=== PATIENT | male | born 1970 | race Caucasian/White ===

== ENCOUNTER 2019-04-28 08:47 | Inpatient (IN) | payer BC ==
[~2019-04-28] VITALS: Ht 172.7 cm; Wt 87.5 kg
--- OUTSIDE RECORDS SUMMARY | 2019-04-28 08:49 | XMS REPORT | Clinical Summary ---
Author Author [facility] Address Unknown Phone Unavailable Care Team Providers Care Conference Planner Name Role Phone Graeme Marcus MD PCP Allergies No Known Allergies Medications End Date Status Medication Sig Dispensed Refills Start Date Active diclofenac (VOLTAREN) 1 % Apply 2 g 0 Gel topically 3 (three) times daily as needed. Active hydroCHLOROthiazide TAKE 1/2 45 tablet 0 (HYDRODIURIL) 25 MG TABLET BY 9 tabletIndications: MOUTH EVERY Essential hypertension DAY Active amLODIPine (NORVASC) 5 MG TAKE 1 TABLET 90 tablet 0 tabletIndications: BY MOUTH 9 Essential hypertension EVERY DAY Active lisdexamfetamine Take 1 30 capsule 0 (VYVANSE) 50 MG capsule (50 9 capsuleIndications: mg total) by Attention deficit mouth daily. hyperactivity disorder Max Daily (ADHD), unspecified ADHD Amount: 50 mg type Active ramipril (ALTACE) 10 MG TAKE 1 180 capsule 0 capsuleIndications: CAPSULE BY 9 Essential hypertension MOUTH TWICE DAILY 05/20/2018 Discontinued amLODIPine (NORVASC) 5 MG Take 5 mg by 0 tablet mouth daily. 05/20/2018 Discontinued hydroCHLOROthiazide Take 12.5 mg 0 (HYDRODIURIL) 25 MG by mouth tablet daily. 05/20/2018 Discontinued ramipril (ALTACE) 10 MG Take 10 mg by 0 capsule mouth 2 (two) times daily. 05/20/2018 Discontinued lisdexamfetamine Take 40 mg by 0 (VYVANSE) 40 MG capsule mouth daily. 08/01/2018 Discontinued lisdexamfetamine Take 1 30 capsule 0 (VYVANSE) 40 MG capsule (40 8 capsuleIndications: mg total) by Attention deficit mouth daily. hyperactivity disorder Max Daily (ADHD), unspecified ADHD Amount: 40 mg type 01/14/2019 Discontinued ramipril (ALTACE) 10 MG Take 1 180 capsule 1 capsuleIndications: capsule (10 8 Essential hypertension mg total) by mouth 2 (two) times daily. 12/22/2018 Discontinued amLODIPine (NORVASC) 5 MG Take 1 tablet 90 tablet 1 tabletIndications: (5 mg total) 8 Essential hypertension by mouth daily. 09/21/2018 Discontinued hydroCHLOROthiazide Take 0.5 90 tablet 1 (HYDRODIURIL) 25 MG tablets (12.5 8 tabletIndications: mg total) by Essential hypertension mouth daily. 12/30/2018 Discontinued lisdexamfetamine Take 1 30 capsule 0 (VYVANSE) 40 MG capsule (40 8 capsuleIndications: mg total) by Attention deficit mouth daily. hyperactivity disorder Max Daily (ADHD), unspecified ADHD Amount: 40 mg type 12/22/2018 Discontinued hydroCHLOROthiazide TAKE 1/2 45 tablet 0 (HYDRODIURIL) 25 MG TABLET BY 9 tabletIndications: MOUTH EVERY Essential hypertension DAY 03/15/2019 Discontinued hydroCHLOROthiazide TAKE 1/2 45 tablet 0 (HYDRODIURIL) 25 MG TABLET BY 9 tabletIndications: MOUTH EVERY Essential hypertension DAY 03/22/2019 Discontinued amLODIPine (NORVASC) 5 MG TAKE 1 TABLET 90 tablet 0 tabletIndications: BY MOUTH 9 Essential hypertension EVERY DAY 02/06/2019 Discontinued lisdexamfetamine Take 1 30 capsule 0 (VYVANSE) 40 MG capsule (40 9 capsuleIndications: mg total) by Attention deficit mouth daily. hyperactivity disorder Max Daily (ADHD), unspecified ADHD Amount: 40 mg type 04/10/2019 Discontinued ramipril (ALTACE) 10 MG TAKE 1 180 capsule 0 capsuleIndications: CAPSULE BY 9 Essential hypertension MOUTH TWICE DAILY 03/06/2019 Discontinued lisdexamfetamine Take 1 30 capsule 0 (VYVANSE) 40 MG capsule (40 9 capsuleIndications: mg total) by Attention deficit mouth daily. hyperactivity disorder Max Daily (ADHD), unspecified ADHD Amount: 40 mg type 04/08/2019 Discontinued lisdexamfetamine Take 1 30 capsule 0 (VYVANSE) 50 MG capsule (50 9 capsuleIndications: mg total) by Attention deficit mouth daily. hyperactivity disorder Max Daily (ADHD), unspecified ADHD Amount: 50 mg type Active Problems Problem Noted Date Attention deficit hyperactivity disorder (ADHD), unspecified ADHD type 05/20/2018 Essential hypertension 05/20/2018 Encounters Care Team Description Date Type Specialty Graeme Marcus MD Essential hypertension 04/10/2019 Refill [facility] Graeme Lozada MD Attention deficit hyperactivity disorder (ADHD), unspecified ADHD type 04/08/2019 Orders Only Graeme Pollack MD Medication Refill 04/08/2019 Telephone Graeme Pollack MD Essential hypertension 03/22/2019 Refill Graeme Pollack MD Essential hypertension 03/15/2019 Refill [facility] Graeme Lozada MD Rotator cuff syndrome, right (Primary Dx); Attention deficit hyperactivity disorder (ADHD), unspecified ADHD type 03/06/2019 Office Visit Graeme Pollack MD Attention deficit hyperactivity disorder (ADHD), unspecified ADHD type 02/06/2019 Orders Only Graeme Pollack MD Medication Refill 02/06/2019 Telephone Graeme Pollack MD Essential hypertension 01/14/2019 Refill Graeme Pollack MD Attention deficit hyperactivity disorder (ADHD), unspecified ADHD type 12/30/2018 Orders Only Graeme Pollack MD Medication Refill 12/30/2018 Telephone Graeme Pollack MD Essential hypertension 12/22/2018 Refill Graeme Pollack MD Essential hypertension (Primary Dx); Attention deficit hyperactivity disorder (ADHD), unspecified ADHD type 11/22/2018 Office Visit Graeme Pollack MD Essential hypertension 09/21/2018 Refill Graeme Pollack MD Benign essential HTN (Primary Dx); Attention deficit hyperactivity disorder (ADHD), unspecified ADHD type; Shortness of breath 08/01/2018 Office Visit Graeme Pollack MD Essential hypertension (Primary Dx); Attention deficit hyperactivity disorder (ADHD), unspecified ADHD type 05/20/2018 Office Visit Family Medicine after 04/27/2018 Social History Date Tobacco Use Types Packs/Day Years Used Never Smoker Smokeless Tobacco: Never Used Alcohol Use Drinks/Week oz/Week Comments Yes Minimal Consumption Sex Assigned at Date Recorded Not on file Industry Job Start Date Occupation Not on file Not on file Not on file Travel End Travel History Travel Start No recent travel history available. Last Filed Vital Signs Time Taken Vital Sign Reading 03/06/2019 3:22 PM CDT Blood Pressure 120/80 03/06/2019 3:22 PM CDT Pulse 103 03/06/2019 3:22 PM CDT Temperature 36.7 C (98 F) 03/06/2019 3:22 PM CDT Respiratory Rate 16 03/06/2019 3:22 PM CDT Oxygen Saturation 96% - Inhaled Oxygen - Concentration 03/06/2019 3:22 PM CDT Weight 86.6 kg (191 lb) 03/06/2019 3:22 PM CDT Height 172.7 cm (5' 8") 03/06/2019 3:22 PM CDT Body Mass Index 29.04 Plan of Treatment Not on file Results Not on fileafter 04/27/2018 Insurance Payer Benefit Subscriber ID Type Phone Address Plan / Group [employer]UE [employer] BCBS BLUE xxxxxxxxxxxxxxx O [phone] [address] [place] [address]
[2019-04-28] MEDS ORDERED: MORPHINE SULFATE INJ 4 MG/ML INJ 1ML ONE ×2 (09:13→15:11)
[2019-04-28] MEDS ORDERED: ASPIRIN 81 MG CHEW TAB PO ONE (09:15)
[2019-04-28] MEDS ORDERED: MORPHINE SULFATE 5 MG/ML VIAL IV ONE (09:15)
--- NOTE | 2019-04-28 09:23 | Diagnostic Imaging Report ---
Frontal and lateral views of the chest. HISTORY: Chest tightness, chest pain COMPARISON: None available. DISCUSSION: Overlying monitoring leads. Lungs: Low lung volumes result in bibasilar vascular crowding, accentuation of the pulmonary interstitial markings, central pulmonary vasculature, and the cardiac silhouette. Allowing for these limitations, the findings are as follows: No evidence of a consolidative pneumonia or pulmonary alveolar edema. Pleura: No pleural effusion or pneumothorax. Heart and mediastinum: The cardiomediastinal silhouette appear(s) unremarkable. Bones and soft tissues: Appear unremarkable. IMPRESSION: No acute radiographic abnormality. Signed by: Dr. Angelito Horne D.O., M.M.M. on 04/28/2019 9:20 AM
[2019-04-28] MEDS ORDERED: AMLODIPINE BESY10 MG PO (09:35)
[2019-04-28] MEDS ORDERED: RAMIPRIL5 MG PO (09:35)
[2019-04-28] MEDS ORDERED: VYVANSE20 MG (09:35)
[2019-04-28] MEDS ORDERED: MORPHINE SULFATE INJ 4 MG/ML INJ 1ML IV ONE (10:05)
[2019-04-28] MEDS ORDERED: SODIUM CHLORIDE FLUSH 10 ML SYR INJ PRN (10:15)
[2019-04-28] MEDS ORDERED: MORPHINE SULFATE 2 MG/ML SYR 1ML IV PRN (10:15)
[2019-04-28] MEDS ORDERED: FAMOTIDINE 20 MG TAB PO SCH (10:15)
[2019-04-28] MEDS ORDERED: ONDANSETRON HCL INJ 2MG/ML 2ML 2 MG/ML VIAL IV PRN ×2 (10:15→21:00)
[2019-04-28] MEDS ORDERED: NITROGLYCERIN 0.4 MG SUBL SL PRN (10:15)
[2019-04-28 11:35] LABS: CHLORIDE 89 mmol/L (98-107); POTASSIUM 4.4 mmol/L (3.5-5.1)
--- NOTE | 2019-04-28 11:47 | Diagnostic Imaging Report ---
TECHNIQUE: Ultrasound evaluation of the abdomen. Color doppler was utilized to supplement the evaluation. HISTORY: Chest tightness COMPARISON: None available. DISCUSSION: Per the technologist performing the exam, the exam is limited secondary to body habitus and regional bowel gas. LIVER: No focal lesion is identified. Diffusely increased hepatic echogenicity. The liver measures 19 cm in the right midclavicular line. BILIARY: Normal appearance, without evidence for gallstones, gallbladder wall thickening or pericholecystic fluid. The sonographic Gonzalez's sign is reported as negative. The common bile duct measures 0.4 cm. PANCREAS: Obscured; therefore, cannot be evaluated. SPLEEN: No splenomegaly. PERITONEUM: No free fluid. KIDNEYS: Right: Measures 11 cm in length. No hydronephrosis or solid mass lesion identified. VASCULATURE: Aorta: Visualized portions appear unremarkable. Interior vena cava: Visualized portions appear unremarkable. Portal Vein: Nondilated with hepatopedal flow. IMPRESSION: 1. No acute sonographic abnormality. 2. Hepatomegaly and probable hepatosteatosis. Signed by: Dr. Angelito Horne D.O., M.M.M. on 04/28/2019 11:43 AM
[2019-04-28] MEDS ORDERED: FAMOTIDINE 20 MG TAB ONE (11:54)
[2019-04-28 11:58] LABS: SODIUM 119 mmol/L (136-145)
[2019-04-28 12:07] LABS: ALBUMIN 4.4 g/dL (3.5-5.0); ALBUMIN/GLOBULIN RATIO 0.4 (0.8-2.0); CALCIUM 10.1 mg/dL (8.4-10.2)
[2019-04-28 12:29] LABS: BUN/CREATININE RATIO 10 (6-25); EST GLOMERULAR FILTRATION RATE > 60 ML/MIN (60-)
[2019-04-28 12:30] LABS: ALKALINE PHOSPHATASE 94 IU/L (40-150); BLOOD UREA NITROGEN 10 mg/dL (7-26); CREATININE, SERUM 1.02 mg/dL (0.72-1.25)
[2019-04-28 12:31] LABS: ALANINE AMINOTRANSFERASE 53 IU/L (0-55)
[2019-04-28 13:35] LABS: GLUCOSE 309 mg/dL (74-118)
[2019-04-28 14:15] LABS: ANION GAP 9.5 mmol/L (8-16)
[2019-04-28 14:16] LABS: BUN/CREATININE RATIO 23 (6-25); EST GLOMERULAR FILTRATION RATE > 60 ML/MIN (60-)
[2019-04-28 14:26] LABS: POTASSIUM 4.5 mmol/L (3.6-5.1); SODIUM 133 mmol/L (136-144)
[2019-04-28 14:27] LABS: BLOOD UREA NITROGEN 14 mg/dL (8-26); CARBON DIOXIDE 24 mmol/L (22-32); CHLORIDE 104 mmol/L (101-111); CREATININE, SERUM 0.6 mg/dL (0.9-1.3); GLUCOSE 306 mg/dL (74-118)
[2019-04-28 14:37] LABS: ALBUMIN 3.5 g/dL (3.5-5.0); ALBUMIN/GLOBULIN RATIO 0.4 (0.8-2.0)
[2019-04-28 15:03] LABS: ALKALINE PHOSPHATASE 68 IU/L (40-150)
[2019-04-28] MEDS ORDERED: BELLADONNA ALK/PHENOBARBITAL 5 ML UDC ONE (15:05)
[2019-04-28] MEDS: DONNATAL/LIDOCAINE/MAALOX 30 ML SUSP PO SCH (15:05)
[2019-04-28] MEDS ORDERED: LIDOCAINE VISC 2% SOLN 15 ML UDC ONE (15:05)
[2019-04-28] MEDS ORDERED: IOPAMIDOL 370 MG/ML 200 ML INFUS..BTL INJ ONE (15:25)
[2019-04-28] MEDS ORDERED: SODIUM CHLORIDE 0.9% 100 ML 100 ML ONE (15:26)
[2019-04-28 15:47] LABS: ALANINE AMINOTRANSFERASE 21 IU/L (0-55)
--- NOTE | 2019-04-28 16:16 | Diagnostic Imaging Report ---
CT CHEST WITH CONTRAST HISTORY: Chest tightness, left-sided pain, rule out PE COMPARISON: None available. TECHNIQUE: CT scan of the chest WITH intravenous contrast, using PE protocol. The chest was scanned utilizing a multidetector helical scanner from the lung apex through the level of the adrenal glands. Thin section reconstructions were obtained with special concentration on the pulmonary arteries. IV CONTRAST: 100 cc of Isovue-370. PROTOCOL: PE RADIATION DOSE: Total DLP: 415 mGy*cm Dose modulation, iterative reconstruction, and/or weight based adjustment of the mA/kV was utilized to reduce the radiation dose to as low as reasonably achievable. COMPLICATIONS: None DISCUSSION: Lungs: Mild bilateral lower lobe atelectasis. No pneumonia or pulmonary edema. Vessels: No filling defects are identified within the pulmonary arteries to the segmental levels. Heterogeneous peripheral mixing of contrast, especially in the areas of lower lobe atelectasis, limit evaluation of more distal arteries. Scattered atherosclerotic vascular calcifications, including the coronary arteries. Airways: The major airways are clear. Pleura: No pleural effusion or pneumothorax. Heart and mediastinum: Small to moderate hiatal hernia. Abdomen: Limited evaluation of the upper abdomen. Diffusely decreased attenuation of the visualized liver, compatible with diffuse hepatic steatosis. Partially visualized nonspecific fat stranding near the expected region of the pancreatic tail/body. Lymph nodes: No pathologically enlarged lymph node. Bones: No acute bone abnormality. Soft tissues: Unremarkable IMPRESSION: 1. No evidence of a pulmonary embolism to the segmental level and no evidence of right heart strain. 2. Coronary atherosclerosis. 3. Mild bibasilar lower lobe atelectasis. 4. Severe hepatic steatosis. 5. Nonspecific partially visualized fat stranding in the expected region of the pancreatic tail/body, correlate with laboratory values for potential pancreatitis. Signed by: Dr. Angelito Horne D.O., M.M.M. on 04/28/2019 4:13 PM
--- NOTE | 2019-04-28 16:22 | NUR ---
Calling [facility] for transport to room 296. ETA 30-40 minutes.
--- OUTSIDE RECORDS SUMMARY | 2019-04-28 16:41 | XMS REPORT | Clinical Summary ---
Author Author [facility] Address Unknown Phone Unavailable Care Team Providers Care Resolution Specialist Name Role Phone Graeme Marcus MD PCP [...] Graeme Marcus MD Essential hypertension 04/10/2019 Refill [facility] Graeme Lozada MD Attention deficit hyperactivity disorder (ADHD), unspecified ADHD type 04/08/2019 Orders Only Graeme Pollack MD Medication Refill 04/08/2019 Telephone Graeme Pollack MD Essential hypertension 03/22/2019 Refill Graeme Pollack MD Essential hypertension 03/15/2019 Refill [facility] Graeme Lozada MD Rotator cuff syndrome, [...] [employer] BLUE xxxxxxxxxxxxxxx O [phone] [address] [place] [address]
--- OUTSIDE RECORDS SUMMARY | 2019-04-28 16:41 | XMS REPORT ---
Author Author [facility] Address Unknown Phone Unavailable Care Team Providers Care Hydrometer Calibrator Name Role Phone Jolanta MARTINEZ Unavailable Unavailable Problems This patient has no known problems. Allergies, Adverse Reactions, Alerts This patient has no known allergies or adverse reactions. Medications This patient has no known medications. Results Test Description Test Time Test Comments Text Results Atomic Results Result Comments CT CHEST WITH CONTRAST-HOPD 2019-04-28 16:04:00 [place] [address] Patient Name: LORIE LARA MR #: [id number] : 1970 Age/Sex: 48/M Req #: [id number] [facility] Physician: Ordered by: YOVANNY MARTINEZ MD Report #: [id number] Location: [facility] Room/Bed: Procedure: [id number] HOPD/CT CHEST WITH CONTRAST-HOPD Exam Date: 04/28/19 Exam Time: 1558 REPORT STATUS: Signed CT CHEST WITH CONTRAST HISTORY: Chest tightness, left-sided pain, rule out PE COMPARISON: None available. TECHNIQUE: CT scan of the chest WITH intravenous contrast, using PE protocol. The chest was scanned utilizing a multidetector helical scanner from the lung apex through the level of the adrenal glands. Thin section reconstructions were obtained with special concentration on the pulmonary arteries. IV CONTRAST: 100 cc of Isovue-370. PROTOCOL: PE RADIATION DOSE: Total DLP: 415 mGy*cm Dose modulation, iterative reconstruction, and/or weight based adjustment of the mA/kV was utilized to reduce the radiation dose to as low as reasonably achievable. COMPLICATIONS: None DISCUSSION: Lungs: Mild bilateral lower lobe atelectasis. No pneumonia or pulmonary edema. Vessels: No filling defects are identified within the pulmonary arteries to the segmental levels. Heterogeneous peripheral mixing of contrast, especially in the areas of lower lobe atelectasis, limit evaluation of more distal arteries. Scattered atherosclerotic vascular calcifications, including the coronary arteries. Airways: The major airways are clear. Pleura: No pleural effusion or pneumothorax. Heart and mediastinum: Small to moderate hiatal hernia. Abdomen: Limited evaluation of the upper abdomen. Diffusely decreased a ttenuation of the visualized liver, compatible with diffuse hepatic steatosis. Partially visualized nonspecific fat stranding near the expected region of the pancreatic tail/body. Lymph nodes: No pathologically enlarged lymph node. Bones: No acute bone abnormality. Soft tissues: Unremarkable IMPRESSION: 1. No evidence of a pulmonary embolism to the segmental level and no evidence of right heart strain. 2. Coronary atherosclerosis. 3. Mild bibasilar lower lobe atelectasis. 4. Severe hepatic steatosis. 5. Nonspecific partially visualized fat stranding in the expected region of the pancreatic tail/body, correlate with laboratory values for potential pancreatitis. Signed by: Dr. Javier Horne DMelodieO., M.M.M. on 04/28/2019 4:13 PM Dictated By: JAVIER HORNE DO 1613 Transcribed By: VIOLETA on 04/28/19 1613 COPY TO: YOVANNY MARTINEZ MD GALL BLADDER-HOPD 2019-04-28 11:38:00 [place] [address] Patient Name: LORIE LARA MR #: [id number] : 1970 Age/Sex: 48/M Req #: [id number] Adm Physician: Ordered by: YOVANNY MARTINEZ MD Report #: [id number] Location: [facility] Room/Bed: Procedure: [id number] HOPD/US GALL BLADDER-HOPD Exam Date: 04/28/19 Exam Time: 1120 REPORT STATUS: Signed TECHNIQUE: Ultrasound evaluation of the abdomen. Color doppler was utilized to supplement the evaluation. HISTORY: Chest tightness COMPARISON: None available. DISCUSSION: Per the technologist performing the exam, the exam is limited secondary to body habitus and regional bowel gas. LIVER: No focal lesion is identified. Diffusely increased hepatic echogenicity. The liver measures 19 cm in the right midclav icular line. BILIARY: Normal appearance, without evidence for gallstones, gallbladder wall thickening or pericholecystic fluid. The sonographic Gonzalez's sign is reported as negative. The common bile duct measures 0.4 cm. PANCREAS: Obscured; therefore, cannot be evaluated. SPLEEN: No splenomegaly. PERITONEUM: No free fluid. KIDNEYS: Right: Measures 11 cm in length. No hydronephrosis or solid mass lesion identified. VASCULATURE: Aorta: Visualized portions appear unremarkable. Interior vena cava: Visualized portions appear unremarkable. Portal Vein: Nondilated with hepatopedal flow. IMPRESSION: 1. No acute sonographic abnormality. 2. Hepatomegaly and probable hepatosteatosis. Signed by: Spencer WellsO., M.M.M. on 04/28/2019 11:43 AM Dictated By: JAVIER HORNE DO 1143 Transcribed By: VIOLETA on 04/28/19 1143 COPY TO: YOVANNY MARTINEZ MD CXR 2 VIEW - HOPD 2019-04-28 09:18:00 [place] [address] Patient Name: LORIE LARA MR #: [id number] : 1970 Age/Sex: 48/M Req #: [id number] Adm Physician: Ordered by: YOVANNY MARTINEZ MD Report #: [id number] Location: [facility] Room/Bed: Procedure: [id number] HOPD/CXR 2 VIEW - HOPD Exam Date: 04/28/19 Exam Time: 914 REPORT STATUS: Signed Frontal and lateral views of the chest. HISTORY: Chest tightness, chest pain COMPARISON: None available. DISCUSSION: Overlying monitoring leads. Lungs: Low lung volumes result in bibasilar vascular crowding, accentuation of the pulmonary interstitial markings, central pulmonary vasculature, and the cardiac silhouette. Allowing for these limitations, the findings are as follows: No evidence of a consolidative pneumonia or pulmonary alveolar edema. Pleura: No pleural effusion or pneumothorax. Heart and mediastinum: The cardiomediastinal silhouette appear(s) unremarkable. Bones and soft tissues: Appear unremarkable. IMPRESSION: No acute radiographic abnormality. Signed by: Spencer WellsOMelodie, M.M.M. on 04/28/2019 9:20 AM Dictated By: JAVIER HORNE DO 9 Transcribed By: VIOLETA on 04/28/19919 COPY TO: YOVANNY MARTINEZ MD
[2019-04-28] MEDS ORDERED: SODIUM CHLORIDE 0.9% 1000ML 1,000 ML IV SCH (16:45)
--- NOTE | 2019-04-28 17:17 | Diagnostic Imaging Report ---
ADDENDUM #1 EXAM: CT of the abdomen and pelvis WITHOUT contrast HISTORY: Left sided upper abdominal pain, rule out pancreatitis COMPARISON: None available. TECHNIQUE: The abdomen and pelvis were scanned utilizing a multidetector helical scanner. Coronal and sagittal reformats are available. PROTOCOL: Routine IV CONTRAST: None, which limits sensitivity and specificity of evaluation of the soft tissues and vascular structures. ORAL CONTRAST: None, which limits sensitivity and specificity of evaluation of the bowel. RADIATION DOSE: Total DLP: 804.16 mGy*cm Estimated effective dose: (DLP x 0.015 x size factor) Dose modulation, iterative reconstruction, and/or weight based adjustment of the mA/kV was utilized to reduce the radiation dose to as low as reasonably achievable. COMPLICATIONS: None FINDINGS: The patient recently received intravenous contrast for a CT of the chest pulmonary embolism protocol; therefore, there is contrast within the setting systems, ureters, and urinary bladder. LOWER THORAX: Persistent bilateral lower lobe atelectasis. Small to moderate hiatal hernia. HEPATOBILIARY: Diffusely decreased attenuation. No definite focal hepatic lesions. No biliary ductal dilatation. The gallbladder is unremarkable. SPLEEN: No splenomegaly. PANCREAS: Diffuse early thickened and ill-defined pancreas, most notably the body and tail with marked surrounding fat stranding. Parenchymal enhancement cannot be well assessed. There is no discrete associated fluid collection. ADRENALS: No adrenal nodule. KIDNEYS/URETERS: No hydronephrosis, stones, or solid mass lesion identified. A 7 mm hyperdensity at the medial aspect of the superior pole of the left kidney, likely a hyperdense cyst. PELVIC ORGANS/BLADDER: The visualized pelvic organs appear unremarkable. PERITONEUM / RETROPERITONEUM: No free air, marked mesenteric fat stranding, as above. GI TRACT: Reactive wall thickening of the second portion of the duodenum. The appendix appears normal. No bowel dilation. LYMPH NODES: No pathologically enlarged lymph nodes. VESSELS: Scattered atherosclerotic vascular calcifications, including the coronary arteries. BONES and JOINTS: No aggressive osseous lesion or acute fracture. SOFT TISSUES: Unremarkable. IMPRESSION: 1. Findings compatible with acute pancreatitis. No associated fluid collection. 2. Coronary atherosclerosis. 3. Hepatic steatosis. 4. Hiatal hernia. Final report discussed with Dr. Moffett via phone on 04/28/2019 at 1724. Signed by: Dr. Angelito Horne D.O., M.M.M. on 04/28/2019 5:25 PM ORIGINAL REPORT EXAM: CT of the abdomen and pelvis WITHOUT contrast HISTORY: Left sided upper abdominal pain, rule out pancreatitis COMPARISON: None available. TECHNIQUE: The abdomen and pelvis were scanned utilizing a multidetector helical scanner. Coronal and sagittal reformats are available. PROTOCOL: Routine IV CONTRAST: None, which limits sensitivity and specificity of evaluation of the soft tissues and vascular structures. ORAL CONTRAST: None, which limits sensitivity and specificity of evaluation of the bowel. RADIATION DOSE: Total DLP: 804.16 mGy*cm Estimated effective dose: (DLP x 0.015 x size factor) Dose modulation, iterative reconstruction, and/or weight based adjustment of the mA/kV was utilized to reduce the radiation dose to as low as reasonably achievable. COMPLICATIONS: None FINDINGS: The patient recently received intravenous contrast for a CT of the chest pulmonary embolism protocol; therefore, there is contrast within the setting systems, ureters, and urinary bladder. LOWER THORAX: Persistent bilateral lower lobe atelectasis. Small to moderate hiatal hernia. HEPATOBILIARY: Diffusely decreased attenuation. No definite focal hepatic lesions. No biliary ductal dilatation. The gallbladder is unremarkable. SPLEEN: No splenomegaly. PANCREAS: Diffuse early thickened and ill-defined pancreas, most notably the body and tail with marked surrounding fat stranding. Parenchymal enhancement cannot be well assessed. There is no discrete associated fluid collection. ADRENALS: No adrenal nodule. KIDNEYS/URETERS: No hydronephrosis, stones, or solid mass lesion identified. A 7 mm hyperdensity at the medial aspect of the superior pole of the left kidney, likely a hyperdense cyst. PELVIC ORGANS/BLADDER: The visualized pelvic organs appear unremarkable. PERITONEUM / RETROPERITONEUM: No free air, marked mesenteric fat stranding, as above. GI TRACT: Reactive wall thickening of the second portion of the duodenum. The appendix appears normal. No bowel dilation. LYMPH NODES: No pathologically enlarged lymph nodes. VESSELS: Scattered atherosclerotic vascular calcifications, including the coronary arteries. BONES and JOINTS: No aggressive osseous lesion or acute fracture. SOFT TISSUES: Unremarkable. IMPRESSION: 1. Findings compatible with acute appendicitis. No associated fluid collection. 2. Coronary atherosclerosis. 3. Hepatic steatosis. 4. Hiatal hernia. Signed by: Dr. Angelito Horne D.O., M.M.M. on 04/28/2019 5:13 PM
[2019-04-28 17:25] VITALS: BP 119/83
--- NOTE | 2019-04-28 17:25 | NUR ---
PATIENT RECEIVED FROM [facility] ER PER STRETCHER. ALERT AND VERBALLY RESPONSIVE. DENIED PAIN AT THIS TIME. SKIN WARM AND DRY TO TOUCH, RESPIRATION EVEN AND UNLABORED. ABDOMEN SOFT AND NON DISTENDED. TELEMETRY BOX AND YELLOW SOCKS APPLIED. IV FLUID INFUSING ORDERED. PATIENT ORIENTED TO SURROUNDINGS. BED IN LOWER POSITION, CALL LIGHT AT REACH. INSTRUCTED TO CALL FOR ASSISTANCE NEEDED. FAMILY MEMBERS AT BEDSIDE.
[2019-04-28] MEDS ORDERED: POTASSIUM CHLORIDE 20MEQ/100ML 100 ML IV ONE ×2 (17:45)
[2019-04-28] MEDS: SODIUM CHLORIDE 0.9% 1000ML 1,000 ML IV SCH (17:50)
[2019-04-28 19:38] VITALS: BP 129/87
--- NOTE | 2019-04-28 19:40 | NUR ---
RECEIVED PT IN BED AOX 3.C/O ABD PAIN FAMILY AT THE BEDSIDE .CALL LIGHT WITH IN REACH .CONTINUE TO MONITOR
[2019-04-28 20:41] LABS: CREATINE KINASE 127 IU/L (30-200)
[2019-04-28] MEDS: MORPHINE SULFATE INJ 4 MG/ML INJ 1ML IV PRN (21:03)
[2019-04-29] VITALS (8 sets, daily range): BP systolic 123–165; BP diastolic 89–106
[2019-04-29] MEDS: SODIUM CHLORIDE 0.9% 1000ML 1,000 ML IV SCH ×3 (01:00→17:58)
[2019-04-29] MEDS: MORPHINE SULFATE INJ 4 MG/ML INJ 1ML IV PRN (01:30)
--- NOTE | 2019-04-29 05:38 | NUR ---
PT C/O PAIN AND GIVEN ORDERED PAIN MEDICATION.CALL LIGHT WITH IN REACH .CONTINUE TO MONITOR
[2019-04-29 06:11] LABS: BASOPHILS # (AUTO) 0.1 (0.0-0.1); BASOPHILS % 0.6 % (0.0-1.0); EOSINOPHILS # (AUTO) 0.1 (0.0-0.4); EOSINOPHILS % 0.6 % (0.0-6.0); HEMOGLOBIN 19.1 g/dL (14.0-18.0); LYMPHOCYTES # (AUTO) 0.9 (1.0-3.2); MEAN CORPUSCULAR HEMOGLOBIN 32.1 pg (28-32); MEAN CORPUSCULAR HGB CONC 36.7 g/dL (31-35); MEAN CORPUSCULAR VOLUME 87.4 fL (81-99); MONOCYTES # (AUTO) 1.8 (0.2-0.8); MONOCYTES % 11.6 % (4.4-11.3); NEUTROPHILS # (AUTO) 12.6 (2.1-6.9); NEUTROPHILS % 80.6 % (38.7-80.0); PLATELET COUNT 161 x10e3/uL (140-360); RED BLOOD COUNT 5.95 x10e6/uL (4.3-5.7); RED CELL DISTRIBUTION WIDTH 13.5 % (11.7-14.4)
[2019-04-29 06:40] LABS: ANISOCYTOSIS SLIGHT; BAND NEUTROPHILS % (MANUAL) 5 %; LYMPHOCYTES % (MANUAL) 6 % (19-48); MONOCYTES % (MANUAL) 13 % (3.4-9.0); NEUTROPHILS % (MANUAL) 76 % (40-74); POIKILOCYTOSIS SLIGHT; RBC MORPHOLOGY COMMENT NORMAL
[2019-04-29 06:41] LABS: PLATELET ESTIMATE ADEQUATE; PLATELET MORPHOLOGY COMMENT NORMAL
--- NOTE | 2019-04-29 06:55 | NUR ---
BEDSIDE REPORT GIVEN TO THE ONCOMING NURSE
[2019-04-29 07:11] LABS: ALBUMIN 3.9 g/dL (3.5-5.0); ALBUMIN/GLOBULIN RATIO 0.5 (0.8-2.0); ALKALINE PHOSPHATASE 70 IU/L (40-150); ANION GAP 7.9 mmol/L (8-16); BLOOD UREA NITROGEN 14 mg/dL (7-26); BUN/CREATININE RATIO 30 (6-25); CALCIUM 9.4 mg/dL (8.4-10.2); CARBON DIOXIDE 30 mmol/L (22-29); CHLORIDE 100 mmol/L (98-107); CREATININE, SERUM 0.47 mg/dL (0.72-1.25); EST GLOMERULAR FILTRATION RATE > 60 ML/MIN (60-); GLUCOSE 365 mg/dL (74-118); HDL CHOLESTEROL 6 MG/DL (40-60); POTASSIUM 3.9 mmol/L (3.5-5.1); SODIUM 134 mmol/L (136-145)
[2019-04-29 07:20] LABS: CHOL/HDL RATIO 117.5 (3.9-4.7)
--- NOTE | 2019-04-29 07:24 | NUR ---
PATIENT IN BED RESTING WITH HEAD OF BED ELEVATED, NO DISTRESS NOTED. IV FLUID INFUSING ORDERED. BED IN LOWER POSITION, CALL LIGHT AT REACH.
[2019-04-29 07:26] LABS: ALANINE AMINOTRANSFERASE 48 IU/L (0-55)
[2019-04-29 07:28] LABS: TRIGLYCERIDES 3818 MG/DL (0-149)
[2019-04-29 07:31] LABS: CHOLESTEROL 709 MD/DL (0-199)
--- NOTE | 2019-04-29 07:39 | NUR ---
H&P cc: abdominal symptoms HPI: 48yoM, PCP , developed abdominal symptoms, found to have acute pancreatitis. Pt admits to having 2 beers before incident. PMH:HTN PSHx:none Allergies; see emr fH/sh; single; no etoh/cigs meds; see MAR ROS: no f/c/s/N/V/D/BARRERA/vision changes/cp/sob/skin rash v/s; revd; PE: tired appearing anicteric ns1s2 mod bs soft; ND; mild tenderness in epigastrium no e/t skin dry n. affect labs/meds; revd A/P: 48yoM Dehydration Acute pancreatitis Hypertriglyceridemia Hyperproteinemia Hepatomegaly Alcohol use PLAN IVF NPO GI consult Start fenofibrate and lipitor screen for DM Prop: scd; ppi Dispo Russell Rosales MD, PhD.
[2019-04-29 08:02] LABS: CREATINE KINASE 156 IU/L (30-200)
[2019-04-29] MEDS: DONNATAL/LIDOCAINE/MAALOX 30 ML SUSP PO SCH ×3 (09:00→21:00)
[2019-04-29] MEDS: FENOFIBRATE 145 MG TAB PO SCH (09:00)
[2019-04-29] MEDS: METOPROLOL TARTRATE INJ 1 MG/ML VIAL IV PRN ×2 (09:10→13:15)
[2019-04-29] MEDS: PANTOPRAZOLE 40 MG 10ML VIAL IV SCH (09:12)
--- NOTE | 2019-04-29 10:45 | NUR ---
PATIENT NOTED WITH B/P OF 165/89 AND THE HR OF 135. MD NOTIFIED , NEW ORDER RECEIVED AND IMPLEMENTED. V/S RECHECKED WITH THE READING OF 142/76 AND HR OF 116. WILL CLOSELY MONITOR.
[2019-04-29 11:42] LABS: AMYLASE 601 U/L (25-125); LIPASE 674 U/L (8-78)
--- NOTE | 2019-04-29 15:16 | NUR ---
DR YU NOTIFIED OF LAB AND CT RESULT, HE STATED THAT IT WAS OK TO GIVE ICE SHIP.
--- NOTE | 2019-04-29 20:04 | NUR ---
RECEIVED PT IN BED RESTING .DENIES PAIN .FAMILY AT THE BEDSIDE .CALL LIGHT WITH IN REACH .CONTINUE TO MONITOR
[2019-04-29] MEDS: ATORVASTATIN 40 MG TAB PO SCH (21:00)
[2019-04-30] VITALS (8 sets, daily range): BP systolic 150–163; BP diastolic 96–100
[2019-04-30 00:32] LABS: BASOPHILS # (AUTO) 0.1 (0.0-0.1); BASOPHILS % 0.5 % (0.0-1.0); EOSINOPHILS # (AUTO) 0.1 (0.0-0.4); EOSINOPHILS % 0.6 % (0.0-6.0); HEMOGLOBIN 15.9 g/dL (14.0-18.0); LYMPHOCYTES # (AUTO) 1.2 (1.0-3.2); MEAN CORPUSCULAR HEMOGLOBIN 30.7 pg (28-32); MEAN CORPUSCULAR HGB CONC 34.6 g/dL (31-35); MEAN CORPUSCULAR VOLUME 88.8 fL (81-99); MONOCYTES # (AUTO) 1.7 (0.2-0.8); MONOCYTES % 12.1 % (4.4-11.3); NEUTROPHILS # (AUTO) 10.6 (2.1-6.9); NEUTROPHILS % 77.2 % (38.7-80.0); PLATELET COUNT 153 x10e3/uL (140-360); RED BLOOD COUNT 5.18 x10e6/uL (4.3-5.7); RED CELL DISTRIBUTION WIDTH 14.3 % (11.7-14.4)
[2019-04-30] MEDS: SODIUM CHLORIDE 0.9% 1000ML 1,000 ML IV SCH ×4 (01:00→22:48)
[2019-04-30] MEDS ORDERED: SODIUM CHLORIDE 0.9% 1000ML 1,000 ML IV ONE (04:00)
--- NOTE | 2019-04-30 05:43 | NUR ---
BOLUS 500ML NORMAL .PER DR YU .PT DENIES PAIN .FAMILY AT THE BEDSIDE .CALL LIGHT WITH IN REACH .CONTINUE TO MONITOR
[2019-04-30 06:08] LABS: BASOPHILS # (AUTO) 0.1 (0.0-0.1); BASOPHILS % 0.7 % (0.0-1.0); EOSINOPHILS % 0.1 % (0.0-6.0); HEMATOCRIT 48.4 % (38.2-49.6); LYMPHOCYTES # (AUTO) 1.3 (1.0-3.2); LYMPHOCYTES % 9.4 % (18.0-39.1); MEAN CORPUSCULAR HEMOGLOBIN 30.1 pg (28-32); MEAN CORPUSCULAR HGB CONC 33.1 g/dL (31-35); MEAN CORPUSCULAR VOLUME 91.1 fL (81-99); MONOCYTES # (AUTO) 1.8 (0.2-0.8); MONOCYTES % 12.7 % (4.4-11.3); NEUTROPHILS # (AUTO) 10.5 (2.1-6.9); NEUTROPHILS % 75.9 % (38.7-80.0); PLATELET COUNT 131 x10e3/uL (140-360); RED BLOOD COUNT 5.31 x10e6/uL (4.3-5.7); RED CELL DISTRIBUTION WIDTH 14.5 % (11.7-14.4)
--- NOTE | 2019-04-30 06:33 | NUR ---
IM- progress note O/N no events ROS: no f/c/s/N/V/D/BARRERA/vision changes/cp/sob/skin rash v/s; revd; PE: tired appearing anicteric ns1s2 mod bs soft; ND; mild tenderness in epigastrium no e/t skin dry n. affect labs/meds; revd A/P: 48yoM Dehydration Acute pancreatitis Hypertriglyceridemia Hyperproteinemia Hepatomegaly Alcohol use PLAN IVF NPO GI consult Start fenofibrate and lipitor screen for DM Prop: scd; ppi Dispo 04/30 Hba1c 13.3- newly dx DM- education; start lantus 10. and accuchecks/ssi. check lipids; lipase improving; Uncontrolled HTN and tachycardia- start clonidine patch; Russell Rosales MD, PhD.
[2019-04-30] MEDS ORDERED: DEXTROSE 50% SYRINGE 50 ML IV PRN (06:45)
[2019-04-30 07:00] LABS: CHOL/HDL RATIO 14.3 (3.9-4.7); CHOLESTEROL 358 MD/DL (0-199); HDL CHOLESTEROL 25 MG/DL (40-60); TRIGLYCERIDES 1122 MG/DL (0-149)
[2019-04-30] MEDS ORDERED: ACETAMINOPHEN 325 MG TAB PO PRN (07:15)
--- NOTE | 2019-04-30 07:20 | NUR ---
BEDSIDE REPORT GIVEN TO THE ONCOMING NURSE
[2019-04-30 07:23] LABS: ALANINE AMINOTRANSFERASE 25 IU/L (0-55); ALBUMIN 3.1 g/dL (3.5-5.0); ALBUMIN/GLOBULIN RATIO 0.6 (0.8-2.0); ALKALINE PHOSPHATASE 61 IU/L (40-150); CALCIUM 8.5 mg/dL (8.4-10.2)
[2019-04-30] MEDS: INSULIN REGULAR, HUMAN 100 UNIT/1 ML 3ML VIAL SQ SCH ×4 (07:30→20:57)
[2019-04-30] MEDS: CLONIDINE HCL 0.1 MG/24 HR 1 EA PATCH TOP SCH (07:51)
[2019-04-30] MEDS ORDERED: INSULIN GLARGINE 100 UNITS/ML VIAL SQ SCH (09:00)
[2019-04-30 10:12] LABS: CHLORIDE 107 mmol/L (98-107); POTASSIUM 5.1 mmol/L (3.5-5.1); SODIUM 132 mmol/L (136-145)
[2019-04-30 10:13] LABS: ANION GAP 17.1 mmol/L (8-16); BLOOD UREA NITROGEN 26 mg/dL (7-26); CARBON DIOXIDE 13 mmol/L (22-29)
[2019-04-30 10:14] LABS: BUN/CREATININE RATIO 33 (6-25); EST GLOMERULAR FILTRATION RATE > 60 ML/MIN (60-); GLUCOSE 268 mg/dL (74-118)
[2019-04-30] MEDS: PANTOPRAZOLE 40 MG 10ML VIAL IV SCH (11:21)
[2019-04-30] MEDS: FENOFIBRATE 145 MG TAB PO SCH (11:21)
[2019-04-30] MEDS: DONNATAL/LIDOCAINE/MAALOX 30 ML SUSP PO SCH ×3 (11:44→21:00)
--- NOTE | 2019-04-30 16:42 | NUR ---
Nutrition Screen Note RD Recommendation for Physician: -Rec low fat/ ADA 1800 diet when medically feasible Plan of Care: RD following, monitoring for tolerance and adequacy, diet education Nutrition reason for involvement: RN Consult diet education Primary Diagnose(s): dehydration, acute pancreatitis, hypertriglyceridemia, new onset DM PMH: HTN Ht: 68in Wt: 193lb BMI: 29.3kg/m2 IBW: 154lb +/- 10% RD Assessment: (04/30) Chart reviewed. Labs and meds reviewed. 48yo M, who was admitted for abdominal pain. Lipase at 548 today. HbA1c at 13.3% - newly diagnosed DM. Visited pt in the room. Pt denied any hx of pancreatitis, high triglycerides or diabetes. Pt denied any nausea or vomiting. LBM 04/30. Weight has been stable. Pt drinks alcohol occasionally. Currently NPO. RD was consulted for diet education; pt was agreeable. All questions have been answered. Current Diet: NPO Malnutrition Evaluation (04/30/2019) The patient does not meet criteria for a specified degree of malnutrition at this time. Will re-evaluate at follow-up as appropriate. Diet Education Needs Assessment: Diet education indicated, pt was agreeable. Learner(s): pt Time spent: 20minutes Barriers: No barriers identified. Cultural/Language Modifications: No cultural/language modifications noted. Pt speaks [place]. Readiness: Acceptance Method: Handout, explanation Topics: Carbohydrate exchanges, Carbohydrate counting handouts, Reading the nutrition label, meal planning tips, exercise tips, servings/portion sizes, low fat diet for high triglycerides and pancreatitis Understanding/Compliance: Expect fair understanding/compliance from pt. Will benefit from reinforcement. Nutrition Care Level: low Signed: Anais Driscoll, MS, RD, LD
--- NOTE | 2019-04-30 19:00 | NUR ---
RECEIVED PATIENT IN BEDSIDE REPORT. PATIENT SLEEPING AT THIS TIME. NO PAIN NOTED, NO S&S OF DISTRESS NOTED. AT BEDSIDE. BED LOCKED IN LOWEST POSITION, SIDE RAILS UPX2, CALL LIGHT IN REACH.
[2019-04-30] MEDS: ATORVASTATIN 40 MG TAB PO SCH (20:56)
[2019-05-01] VITALS (8 sets, daily range): BP systolic 140–164; BP diastolic 79–93
--- NOTE | 2019-05-01 00:25 | NUR ---
MD Kevin YU IN TO SEE PATIENT. ADVANCE DIET TO FULL LIQUID. DIETARY CONSULT FOR A LOW FAT DIET. ORDERS ENTERED.
[2019-05-01] MEDS: SODIUM CHLORIDE 0.9% 1000ML 1,000 ML IV SCH (03:49)
--- NOTE | 2019-05-01 03:50 | NUR ---
PATIENT REPORTS NO N/V AFTER HAVING JUICE, JELLO, AND PUDDING. REPORTS HE ATE SLOW AND HAD NO DISTRESS. NO PAIN REPORTED. NO S&S OF DISTRESS NOTED. BED LOCKED IN LOWEST POSITION, SIDE RAILS UPX2, CALL LIGHT IN REACH.
--- NOTE | 2019-05-01 06:27 | NUR ---
IM- progress note O/N no events ROS: no f/c/s/N/V/D/BARRERA/vision changes/cp/sob/skin rash v/s; revd; PE: tired appearing anicteric ns1s2 mod bs soft; ND; mild tenderness in epigastrium no e/t skin dry n. affect labs/meds; revd A/P: 48yoM Dehydration Acute pancreatitis Hypertriglyceridemia Hyperproteinemia Hepatomegaly Alcohol use PLAN IVF NPO GI consult Start fenofibrate and lipitor screen for DM Prop: scd; ppi Dispo 04/30 Hba1c 13.3- newly dx DM- education; start lantus 10. and accuchecks/ssi. check lipids; lipase improving; Uncontrolled HTN and tachycardia- start clonidine patch; 05/01 check labs; add bicarbs to fluids; Russell Rosales MD, PhD.
[2019-05-01] MEDS: DONNATAL/LIDOCAINE/MAALOX 30 ML SUSP PO SCH ×3 (07:04→21:00)
[2019-05-01 08:19] LABS: BASOPHILS % 0.4 % (0.0-1.0); EOSINOPHILS % 0.3 % (0.0-6.0); HEMATOCRIT 36.8 % (38.2-49.6); HEMOGLOBIN 12.5 g/dL (14.0-18.0); LYMPHOCYTES # (AUTO) 0.8 (1.0-3.2); LYMPHOCYTES % 7.5 % (18.0-39.1); MEAN CORPUSCULAR HEMOGLOBIN 29.8 pg (28-32); MEAN CORPUSCULAR VOLUME 87.8 fL (81-99); MONOCYTES # (AUTO) 1.3 (0.2-0.8); MONOCYTES % 12.4 % (4.4-11.3); NEUTROPHILS # (AUTO) 7.9 (2.1-6.9); NEUTROPHILS % 78.1 % (38.7-80.0); PLATELET COUNT 96 x10e3/uL (140-360); RED BLOOD COUNT 4.19 x10e6/uL (4.3-5.7); RED CELL DISTRIBUTION WIDTH 14.8 % (11.7-14.4)
[2019-05-01 08:24] LABS: ANION GAP 16.4 mmol/L (8-16); BUN/CREATININE RATIO 27 (6-25); EST GLOMERULAR FILTRATION RATE > 60 ML/MIN (60-); SODIUM 138 mmol/L (136-144)
[2019-05-01 08:25] LABS: BLOOD UREA NITROGEN 24 mg/dL (8-26); CARBON DIOXIDE 15 mmol/L (22-32); CHLORIDE 110 mmol/L (101-111); CREATININE, SERUM 0.9 mg/dL (0.9-1.3); GLUCOSE 320 mg/dL (74-118); POTASSIUM 3.4 mmol/L (3.6-5.1)
[2019-05-01] MEDS ORDERED: SODIUM CHLORIDE 0.45% IV SCH (08:30)
[2019-05-01] MEDS ORDERED: SODIUM BICARBONATE 8.4% IV SCH (08:30)
[2019-05-01] MEDS ORDERED: INSULIN GLARGINE 100 UNITS/ML VIAL SQ SCH ×2 (09:00→21:00)
--- NOTE | 2019-05-01 09:24 | NUR ---
Received 2nd dietary consult for diet education. Diet education was provided on 04/30. Please look at RD's note under Nutrition tab.
[2019-05-01] MEDS: PANTOPRAZOLE 40 MG 10ML VIAL IV SCH (09:40)
[2019-05-01] MEDS: FENOFIBRATE 145 MG TAB PO SCH (09:40)
[2019-05-01] MEDS: INSULIN REGULAR, HUMAN 100 UNIT/1 ML 3ML VIAL SQ SCH ×4 (10:00→21:00)
[2019-05-01 10:49] LABS: BAND NEUTROPHILS % (MANUAL) 12 %; LYMPHOCYTES % (MANUAL) 4 % (19-48); MONOCYTES % (MANUAL) 7 % (3.4-9.0); NEUTROPHILS % (MANUAL) 77 % (40-74); RBC MORPHOLOGY COMMENT NORMAL
[2019-05-01 10:50] LABS: ANISOCYTOSIS SLIGHT; PLATELET ESTIMATE SLIGHTLY DECREASED; PLATELET MORPHOLOGY COMMENT NORMAL; POIKILOCYTOSIS SLIGHT
[2019-05-01 10:54] LABS: LIPASE 312 U/L (8-78)
[2019-05-01] MEDS: SODIUM BICARBONATE 8.4% IV SCH ×2 (14:08→21:00)
[2019-05-01] MEDS: SODIUM CHLORIDE 0.45% IV SCH ×2 (14:08→21:00)
--- NOTE | 2019-05-01 16:36 | Consultation ---
DATE OF CONSULTATION: 05/01/2019 Endocrine consultation This is a patient of Dr. Rosales. Thank you very much for referring this patient. HISTORY OF PRESENT ILLNESS: This is a 48-year-old white male gentleman who was referred to me for evaluation of diabetes mellitus and pancreatitis. The patient came to the hospital with history of severe abdominal pain. He was found to have acute pancreatitis and acute hyperglycemia. At the time of admission, sodium was also 119. His blood sugars have been running in the range of 320 to 351. His hemoglobin A1c is 13.3. On direct questioning, the patient does complain of polyuria, polydipsia, dryness of both mouth and significant weight loss. The patient drinks alcohol socially. He does not have a history of any other major medical problems in the past. PHYSICAL EXAMINATION: GENERAL: Today, the patient is alert, awake, little bit apprehensive. VITAL SIGNS: His heart rate is around 78, blood pressure 130/80 mmHg. HEENT: Essentially unremarkable. Thyroid is palpable. Clinically, he is near euthyroid. CHEST: Bilateral vesicular breathing. He has good bilateral bronchospasm. CARDIAC: First and second heart sounds. There is no third or fourth heart sounds. There is ejection systolic murmur grade 2/6.. EXTREMITIES: The patient has evidence of diabetic sensory neuropathy in both lower extremities and tenderness in the epigastric area. CLINICAL IMPRESSION: Diabetes mellitus type 2 new onset, hyperlipidemia, pancreatitis, hypertension. PLAN: The plan at this time is to increase his insulin dose and the patient needs extensive diabetic and dietary education. Thank you for referring this patient. I will be following this patient with you. MD EVER [place]/[id number] /[id number]
[2019-05-01] MEDS: INSULIN LISPRO 100 UNIT/1 ML 3ML VIAL SQ SCH (17:48)
--- NOTE | 2019-05-01 19:15 | NUR ---
Completed BS rounds with morning nurse. Pt alert to name. Lying in bed HOB 45 degrees. Pt denies pain at this time. Family at bedside. Call within reach. Will continue to monitor.
[2019-05-01] MEDS: ATORVASTATIN 40 MG TAB PO SCH (21:00)
[2019-05-02] VITALS (8 sets, daily range): BP systolic 139–160; BP diastolic 87–98
[2019-05-02] MEDS: SODIUM CHLORIDE 0.45% IV SCH ×3 (01:44→13:28)
[2019-05-02] MEDS: SODIUM BICARBONATE 8.4% IV SCH ×3 (01:44→13:28)
--- NOTE | 2019-05-02 06:04 | NUR ---
IM- progress note O/N no events ROS: no f/c/s/N/V/D/BARRERA/vision changes/cp/sob/skin rash v/s; revd; PE: tired appearing anicteric ns1s2 mod bs soft; ND; mild tenderness in epigastrium no e/t skin dry n. affect labs/meds; revd A/P: 48yoM Dehydration Acute pancreatitis Hypertriglyceridemia Hyperproteinemia Hepatomegaly Alcohol use PLAN IVF NPO GI consult Start fenofibrate and lipitor screen for DM Prop: scd; ppi Dispo 04/30 Hba1c 13.3- newly dx DM- education; start lantus 10. and accuchecks/ssi. check lipids; lipase improving; Uncontrolled HTN and tachycardia- start clonidine patch; 05/01 check labs; add bicarbs to fluids; 05/02 improving; Russell Rosales MD, PhD.
--- NOTE | 2019-05-02 07:00 | NUR ---
received am report from RN and morning rounds done. pt is alert resting in bed, no s/s of distress. pt has no complaints at this time. call light is within reach and pt instructed to call nurse for help. family is at the bedside
[2019-05-02 07:15] LABS: ALANINE AMINOTRANSFERASE 17 IU/L (0-55); ALBUMIN 2.2 g/dL (3.5-5.0); ALBUMIN/GLOBULIN RATIO 0.6 (0.8-2.0); ALKALINE PHOSPHATASE 45 IU/L (40-150); ANION GAP 11.6 mmol/L (8-16); BLOOD UREA NITROGEN 20 mg/dL (7-26); BUN/CREATININE RATIO 23 (6-25); CALCIUM 8.7 mg/dL (8.4-10.2); CARBON DIOXIDE 23 mmol/L (22-29); CHLORIDE 100 mmol/L (98-107); CREATININE, SERUM 0.86 mg/dL (0.72-1.25); EST GLOMERULAR FILTRATION RATE > 60 ML/MIN (60-); GLUCOSE 276 mg/dL (74-118); SODIUM 132 mmol/L (136-145); TRIGLYCERIDES 285 MG/DL (0-149)
--- NOTE | 2019-05-02 07:24 | NUR ---
Pt handed off to morning nurse. BS report given. No acute distress noted.
[2019-05-02] MEDS: INSULIN REGULAR, HUMAN 100 UNIT/1 ML 3ML VIAL SQ SCH ×4 (07:30→21:07)
[2019-05-02] MEDS: INSULIN LISPRO 100 UNIT/1 ML 3ML VIAL SQ SCH ×3 (07:30→17:03)
--- NOTE | 2019-05-02 07:30 | NUR ---
@ 3128 lab reported potassium level of 2.[address] Rosales at 0738 and received new orders.
[2019-05-02 07:31] LABS: POTASSIUM 2.6 mmol/L (3.5-5.1)
[2019-05-02] MEDS ORDERED: POTASSIUM CHLORIDE 20 MEQ TAB CR PO ONE ×2 (08:30→16:05)
[2019-05-02] MEDS ORDERED: POTASSIUM CHLORIDE 20MEQ/100ML 200 ML IV ONE ×2 (08:30→16:15)
[2019-05-02] MEDS: FENOFIBRATE 145 MG TAB PO SCH (09:05)
[2019-05-02] MEDS: PANTOPRAZOLE 40 MG 10ML VIAL IV SCH (09:09)
[2019-05-02] MEDS: DONNATAL/LIDOCAINE/MAALOX 30 ML SUSP PO SCH ×3 (12:08→21:07)
--- NOTE | 2019-05-02 16:07 | NUR ---
LAB CALLED WITH RESULT OF POTASSIUM LEVEL 2.[address] QUEEN AND RECEIVED NEW ORDERS
--- NOTE | 2019-05-02 19:12 | NUR ---
PT IS RESTING IN BED WITH FAMILY AT BEDSIDE. RESPIRATION IS EVEN AND UNLABORED, NO DISTRESS NOTED. BED IN THE LOWEST POSITION, LOCKED, AND CALL LIGHT WITHIN REACH. WILL CONTINUE TO MONITOR.
[2019-05-02] MEDS: ATORVASTATIN 40 MG TAB PO SCH (21:07)
[2019-05-02] MEDS: INSULIN GLARGINE 100 UNITS/ML VIAL SQ SCH (21:08)
--- NOTE | 2019-05-02 23:54 | NUR ---
NOTIFIED DR QUEEN OF PT POTASSIUM OF 2.9. PER DR QUEEN POTASSIUM 60MEQ PO ONE TIME DOSE AND BMP LAB IN THE A.M. WILL CONTINUE TO MONITOR.
[2019-05-03] VITALS (8 sets, daily range): BP systolic 138–149; BP diastolic 87–105
[2019-05-03] MEDS ORDERED: POTASSIUM CHLORIDE 10MEQ EA PO ONE
[2019-05-03] MEDS: SODIUM BICARBONATE 8.4% IV SCH ×3 (01:09→17:29)
[2019-05-03] MEDS: SODIUM CHLORIDE 0.45% IV SCH ×3 (01:09→17:29)
--- NOTE | 2019-05-03 05:31 | NUR ---
IM- progress note O/N no events ROS: no f/c/s/N/V/D/BARRERA/vision changes/cp/sob/skin rash v/s; revd; PE: tired appearing anicteric ns1s2 mod bs soft; ND; mild tenderness in epigastrium no e/t skin dry n. affect labs/meds; revd A/P: 48yoM Dehydration Acute pancreatitis Hypertriglyceridemia Hyperproteinemia Hepatomegaly Alcohol use PLAN IVF NPO GI consult Start fenofibrate and lipitor screen for DM Prop: scd; ppi Dispo 04/30 Hba1c 13.3- newly dx DM- education; start lantus 10. and accuchecks/ssi. check lipids; lipase improving; Uncontrolled HTN and tachycardia- start clonidine patch; 05/01 check labs; add bicarbs to fluids; 05/02 improving; 05/03 multiple K replacement overnight; f/u labs this am. Russell Rosales MD, PhD.
--- NOTE | 2019-05-03 06:44 | NUR ---
PAGE DR QUEEN IN REGARD TO PT WANTING TO CHANGE IS DIET ORDER. AWAITING CALL BACK. WILL CONTINUE TO MONITOR.
--- NOTE | 2019-05-03 07:00 | NUR ---
received am report from nurse and morning rounds done. pt is alert and resting in bed, no s/s of distress. call light within reach and instructed to call nurse for help. family is at the bedside
[2019-05-03 07:10] LABS: ANION GAP 13.4 mmol/L (8-16); BLOOD UREA NITROGEN 16 mg/dL (7-26); BUN/CREATININE RATIO 19 (6-25); CALCIUM 8.8 mg/dL (8.4-10.2); CARBON DIOXIDE 28 mmol/L (22-29); CHLORIDE 97 mmol/L (98-107); CREATININE, SERUM 0.83 mg/dL (0.72-1.25); EST GLOMERULAR FILTRATION RATE > 60 ML/MIN (60-); GLUCOSE 189 mg/dL (74-118); POTASSIUM 3.4 mmol/L (3.5-5.1); SODIUM 135 mmol/L (136-145)
[2019-05-03] MEDS: INSULIN LISPRO 100 UNIT/1 ML 3ML VIAL SQ SCH ×3 (07:30→16:30)
[2019-05-03] MEDS: INSULIN REGULAR, HUMAN 100 UNIT/1 ML 3ML VIAL SQ SCH ×4 (07:30→21:08)
[2019-05-03] MEDS: DONNATAL/LIDOCAINE/MAALOX 30 ML SUSP PO SCH ×3 (09:17→21:21)
[2019-05-03] MEDS: FENOFIBRATE 145 MG TAB PO SCH (09:17)
[2019-05-03] MEDS: PANTOPRAZOLE 40 MG 10ML VIAL IV SCH (09:17)
[2019-05-03] MEDS: ATORVASTATIN 40 MG TAB PO SCH (21:08)
[2019-05-03] MEDS: INSULIN GLARGINE 100 UNITS/ML VIAL SQ SCH (21:08)
[2019-05-04] VITALS (7 sets, daily range): BP systolic 130–161; BP diastolic 80–98
[2019-05-04] MEDS: SODIUM BICARBONATE 8.4% IV SCH ×3 (01:37→14:22)
[2019-05-04] MEDS: SODIUM CHLORIDE 0.45% IV SCH ×3 (01:37→14:22)
--- NOTE | 2019-05-04 05:39 | NUR ---
IM- progress note O/N no events ROS: no f/c/s/N/V/D/BARRERA/vision changes/cp/sob/skin rash v/s; revd; PE: tired appearing anicteric ns1s2 mod bs soft; ND; mild tenderness in epigastrium no e/t skin dry n. affect labs/meds; revd A/P: 48yoM Dehydration Acute pancreatitis Hypertriglyceridemia Hyperproteinemia Hepatomegaly Alcohol use PLAN IVF NPO GI consult Start fenofibrate and lipitor screen for DM Prop: scd; ppi Dispo 04/30 Hba1c 13.3- newly dx DM- education; start lantus 10. and accuchecks/ssi. check lipids; lipase improving; Uncontrolled HTN and tachycardia- start clonidine patch; 05/01 check labs; add bicarbs to fluids; 05/02 improving; 05/03 multiple K replacement overnight; f/u labs this am. 05/04 check K and Mg; fevers overnight- check UA. d/c planning; Russell Rosales MD, PhD.
[2019-05-04 06:42] LABS: CHOLESTEROL 253 MD/DL (0-199); TRIGLYCERIDES 254 MG/DL (0-149)
--- NOTE | 2019-05-04 07:00 | NUR ---
received am report from nurse and morning rounds done. pt is alert resting in bed, no s/s of distress. call light within reach and pt instructed to call nurse for help. family is at the bedside
[2019-05-04 07:35] LABS: BILIRUBIN,URINE NEGATIVE (NEGATIVE); CLARITY,URINE CLEAR (CLEAR); COLOR,URINE YELLOW (YELLOW); KETONES,URINE 1+ (NEGATIVE); LEUKOCYTE ESTERASE ,URINE NEGATIVE (NEGATIVE); NITRITE,URINE NEGATIVE (NEGATIVE); PROTEIN,URINE DIPSTICK NEGATIVE (NEGATIVE); URINE UROBILINOGEN 0.2 mg/dL (0.2 - 1)
[2019-05-04 07:49] LABS: BACTERIA,URINE RARE /HPF; EPITHELIAL CELLS,URINE FEW /LPF
[2019-05-04] MEDS: INSULIN LISPRO 100 UNIT/1 ML 3ML VIAL SQ SCH ×3 (08:40→16:30)
[2019-05-04] MEDS: INSULIN REGULAR, HUMAN 100 UNIT/1 ML 3ML VIAL SQ SCH ×4 (08:40→20:55)
[2019-05-04] MEDS: FENOFIBRATE 145 MG TAB PO SCH (08:44)
[2019-05-04] MEDS: PANTOPRAZOLE 40 MG 10ML VIAL IV SCH (08:44)
[2019-05-04] MEDS: DONNATAL/LIDOCAINE/MAALOX 30 ML SUSP PO SCH ×3 (08:46→20:54)
--- NOTE | 2019-05-04 17:14 | NUR ---
Dr. Munguia made rounds and gave new orders.
--- NOTE | 2019-05-04 19:00 | NUR ---
patient received awake, alert, lying quietly in bed. no c/o pain noted. ivf continue to infuse without difficulty. pm assessment complete. family noted at the bedside. patient instructed to call for assistance when needed.
[2019-05-04] MEDS: ATORVASTATIN 40 MG TAB PO SCH (20:54)
[2019-05-04] MEDS ORDERED: INSULIN GLARGINE 100 UNITS/ML VIAL SQ SCH (21:00)
[2019-05-05] VITALS: BP 149/83
[2019-05-05] MEDS: SODIUM BICARBONATE 8.4% IV SCH (02:53)
[2019-05-05] MEDS: SODIUM CHLORIDE 0.45% IV SCH (02:53)
[2019-05-05 04:00] VITALS: BP 156/88
[2019-05-05] MEDS ORDERED: DONNATAL E16.2 MG/5 PO (06:58)
[2019-05-05] MEDS ORDERED: Insulin Lispro SQ (06:58)
[2019-05-05] MEDS ORDERED: FENOFIBRATE145 MG PO (06:58)
[2019-05-05] MEDS ORDERED: CATAPRES-TTS 11 EACH TOP (06:58)
[2019-05-05] MEDS ORDERED: Insulin Glargine SQ (06:58)
[2019-05-05] MEDS ORDERED: PANTOPRAZOLE SO40 MG PO (06:58)
--- NOTE | 2019-05-05 07:00 | NUR ---
Rounds made and report given to Tristan DOAN
--- NOTE | 2019-05-05 07:11 | NUR ---
D/C summary Principal DxDehydration Acute pancreatitis Hypertriglyceridemia Hyperproteinemia Hepatomegaly Alcohol use Uncontorlled HTN PLAN IVF NPO GI consult Start fenofibrate and lipitor screen for DM Prop: scd; ppi Dispo 04/30 Hba1c 13.3- newly dx DM- education; start lantus 10. and accuchecks/ssi. check lipids; lipase improving; Uncontrolled HTN and tachycardia- start clonidine patch; 05/01 check labs; add bicarbs to fluids; 05/02 improving; 05/03 multiple K replacement overnight; f/u labs this am. 05/04 check K and Mg; fevers overnight- check UA. d/c planning; d/c home f/u 1 week and 2 weeks and 2 weeks Stable d/c>35mins Russell Rosales MD, PhD.
[2019-05-05 07:48] VITALS: BP 161/102
[2019-05-05] MEDS: INSULIN LISPRO 100 UNIT/1 ML 3ML VIAL SQ SCH (08:05)
[2019-05-05] MEDS: PANTOPRAZOLE 40 MG 10ML VIAL IV SCH (08:35)
[2019-05-05] MEDS: CLONIDINE HCL 0.1 MG/24 HR 1 EA PATCH TOP SCH (08:38)
[2019-05-05] MEDS: FENOFIBRATE 145 MG TAB PO SCH (08:38)
[2019-05-05] MEDS: INSULIN REGULAR, HUMAN 100 UNIT/1 ML 3ML VIAL SQ SCH (08:40)
[2019-05-05 08:55] VITALS: BP 161/102
[2019-05-05] MEDS ORDERED: ONDANSETRON HCL 4 MG ORAL DISINTEGRATING TAB PO PRN (09:15)
[2019-05-05] MEDS: DONNATAL/LIDOCAINE/MAALOX 30 ML SUSP PO SCH (10:02)
--- NOTE | 2019-05-05 10:25 | NUR ---
Patient discharged home, prescription given, iv canula removed with tip intact, denies any pain, no distress noted. Family at bed side to give ride, tele box returned, transported via wheelchair to [facility]
[2019-05-06] MEDS ORDERED: PANTOPRAZOLE SOD 40 MG TABEC PO SCH (07:30)
== END 2019-05-05 11:01 | disposition home or self-care (01) | DRG 440 ==
LOC: FSED 08:47 → ERHOLD 10:09 → MED/SURG3 17:22 → OBSVTOIN 04-29 07:48
PROVIDERS: ADMIT Internal Medicine; ATTEND Internal Medicine
DX: K85.90 Acute pancreatitis without necrosis or infection, unspecified (principal); I10 Essential (primary) hypertension; E86.0 Dehydration; E88.09 Other disorders of plasma-protein metabolism, not elsewhere classified; R16.0 Hepatomegaly, not elsewhere classified; F10.10 Alcohol abuse, uncomplicated; E78.1 Pure hyperglyceridemia; E11.40 Type 2 diabetes mellitus with diabetic neuropathy, unspecified; Z79.4 Long term (current) use of insulin; E11.65 Type 2 diabetes mellitus with hyperglycemia
CPT/HCPCS: 36415; 71046; 71260; 74176; 76705; 80048; 80053; 80061; 81001; 82150; 82465; 82550; 82553; 82948; 83036; 83690; 83735; 84132; 84478; 84484; 85025; 85379; 86341; 93005; 96360; 96361; 96374; 96375; 99284; G0378; J1815; J1817; J2270; J2405; J3480; J7030; Q9967